=== PATIENT | female | born 1975 | race Caucasian/White ===

== ENCOUNTER 2023-08-19 08:06 | Outpatient (CLI) | payer BC, SELFPAY ==
--- NOTE | 2023-08-23 10:14 | WPDSIXMINUTE ---
Six Minute Walk Procedure Procedure Performed Pulmonary Stress Test (6 min walk) Six Minute Walk Six Minute Walk: This is a 6 minute walk test. The test was performed and interpreted in accordance with the 2014 ERS/ATS task force guidelines. Findings: The patient's resting room air oxygen saturation measured by pulse oximetry was 98% and heart rate was 87 bpm. Patient ambulated for 244 meters and oxygen saturation remained 96 to 98%. Heart rate at the end of the study was 106 bpm. The patient did not qualify for supplemental oxygen at rest or with ambulation. There are no prior studies for comparison.
--- NOTE | 2023-08-23 10:15 | WPDPFTINT ---
PFT Procedure Performed PFT Procedure Performed Spirometry with Pre/Post Bronchodilator Plethysmography (Lung Vol) Diffusing Cap (DLCO) Flow Vol Loop PFT Interpretation This is a pulmonary function test with pre and post-bronchodilator spirometry, plethysmography and diffusing capacity. The test was performed and results interpreted in accordance with the 2019 and 2005 ATS/ERS Task Force guidelines respectively using the Global Lung Function Initiative-2012 reference equations. Patient demonstrated good effort and cooperation. Reproducibility criteria were met. The quality of the pre bronchodilator spirometry maneuver was Grade A and post bronchodilator spirometry maneuver was Grade A. Findings: Spirometry: The contour the inspiratory and expiratory flow tracing are normal. The pre bronchodilator FVC is 3.69 L, 106% predicted. The pre bronchodilator FEV1 is 3.06 L, 110% predicted. The pre bronchodilator FEV1: FVC ratio was 83%. The post bronchodilator FVC is 3.50 L, representing a 5% decrease. The post bronchodilator FEV1 is 2.74 L, representing a 10% decrease. The post bronchodilator FEV1: FVC ratio 78%. Plethysmography: The total lung capacity is 5.14 L, 101% predicted. The functional residual capacity is 2.05 L, 72% predicted. The residual volume is 1.45 L, 81% predicted. Diffusing capacity: The diffusing capacity unadjusted for hemoglobin and carboxyhemoglobin is 24.1, 106% predicted. The diffusing capacity adjusted for alveolar volume is 5.75, 125% predicted. Impression: The spirometry is normal without evidence of an obstructive abnormality. There is no significant improvement after inhaling a single dose of albuterol. The lung volumes are normal. The diffusing capacity is normal. There are no prior studies for comparison
== END 2023-08-19 08:07 | disposition home or self-care (01) ==
PROVIDERS: PCP Physician Assistant Medical; Visit Provider Nurse Practitioner Family
DX: R06.02 Shortness of breath (principal)
CPT/HCPCS: 94060; 94618; 94726; 94729

== ENCOUNTER 2023-09-21 07:56 | Outpatient (CLI) | payer BC, SELFPAY ==
--- NOTE | 2023-09-21 12:53 | P.METCHAL_ITS ---
Methacholine Procedure Perform Procedure Performed Methacholine Challenge Methacholine Challenge Methacholine Challenge: This is a methacholine challenge test. The test was performed and interpreted in accordance with the 2017 ERS technical standard, endorsed by the ATS, using the GLI 2012 reference equations. Testing was performed with increasing doses of nebulized methacholine following a quadrupling dosage protocol. The methacholine dose was delivered via the Pembe Panjurist nebulizer using a 1-minutes tidal breathing protocol. The best post-methacholine FEV1 values were used to determine the change from the post diluent FEV1. The delivered dose of methacholine was used to calculate the provocative dose causing a 20% fall in FEV1 (PD 20). Findings: Baseline FEV1 2.95 L, 106% predicted. Post diluent FEV1 3.00 L Post 1.81 mcg methacholine FEV1 2.96 L, decreased 1% Post 7.26 mcg methacholine FEV1 2.79 L, decreased 7% Post 29.03 mcg methacholine FEV1 3.06 L, increased 2% Post 116.1 mcg methacholine FEV1 2.99 L, decreased 0% Post 464.4 mcg methacholine FEV1 2.74 L, decreased 9% Post albuterol nebulization FEV1 2.88 L Impression: The PD20 is > 400 mcg which is categorized as normal airway hyperresponsiveness. There are no prior methacholine challenge studies for comparison
== END 2023-09-21 07:57 | disposition home or self-care (01) ==
PROVIDERS: PCP Physician Assistant Medical; Visit Provider Nurse Practitioner Family
DX: R06.09 Other forms of dyspnea (principal)
CPT/HCPCS: 94070